=== PATIENT | male | born 1990 | race Caucasian/White ===

== ENCOUNTER → 2019-05-09 17:22 | Outpatient (CLI) | payer OTHER, SELFPAY ==
[2019-05-09 19:38] LABS: HIV - WCH Non-Reactive (Nonreactive)
[2019-05-09 21:16] LABS: Chlamydia Trachomatis by PCR Negative (Negative); Neisserai gonorrhoeae by PCR Negative (Negative); Probe Check PASS; Sample Adequacy Control PASS; Specimen Processing Control PASS
== END ==
PROVIDERS: Family Provider Family Medicine; PCP Family Medicine; Referring Provider Family Medicine; Visit Provider Family Medicine
DX: Z20.2 Contact with and (suspected) exposure to infections with a predominantly sexual mode of transmission (principal)
CPT/HCPCS: 36415; 86703; 87491; 87591